=== PATIENT | male | born 1945 | race Caucasian/White ===

== ENCOUNTER 2017-09-30 16:19 | Emergency (ER) | payer OTHER ==
[~2017-09-30] VITALS: Ht 162.6 cm; Wt 74.8 kg
[~2017-09-30 16:19] MED LIST: ASPIRIN81 M2 PO; BAYER CHEWABLE81 MG PO; BEE POLLEN580 MG PO; L-ARGININE500 M1 PO; LEVAQUIN 500 M500 M2 PO; LOPRESSOR25 PO; MIRALAX17 GM PO; NORCO 5-325 TA1 EACH PO; ONDANSETRON HCL4 M2 PO; PROBIOTIC1 EAC1 PO; VITAMIN D35000 UNI1 PO; [UNRECOGNIZED DRUG - OTHER] PO
[2017-09-30 17:09] LABS: HEMATOCRIT 44.2 % (42.0-52.0); HEMOGLOBIN 15.2 gm/dL (14.0-18.0); MCH 29.5 pg (26.0-34.0); MCHC 34.4 g/dL (28.0-37.0); MCV 85.8 fL (80.0-100.0); NUCLEATED RBCS 0 /100WBC; PLATELET COUNT* 228 thou/uL (150-400); RBC 5.15 mil/uL (4.50-6.00); WBC 4.7 thou/uL (4.0-11.0)
[2017-09-30 17:21] LABS: CALCIUM 8.9 mg/dL (8.5-10.1); CREATININE 1.2 mg/dL (0.6-1.3)
[2017-09-30 17:22] LABS: TROPONIN-I LEVEL <0.06 ng/mL (<0.06)
[2017-09-30 17:26] LABS: ALBUMIN 3.7 g/dL (3.4-5.0); TOTAL BILIRUBIN 0.3 mg/dL (<0.1-1.0); TOTAL PROTEIN 7.9 g/dL (6.4-8.2)
[2017-09-30 17:33] LABS: INFLUENZA A ANTIGEN None Detected (None Detect); INFLUENZA B ANTIGEN None Detected (None Detect)
[2017-09-30 17:55] LABS: ABSOLUTE MONOCYTES 1.2 thou/uL (0.0-1.2); ABSOLUTE NEUTROPHILS 2.4 thou/uL (1.6-8.1); PLATELET ESTIMATE ADEQUATE
[2017-09-30 18:27] LABS: URINE BLOOD TRACE (Negative); URINE CLARITY CLEAR; URINE COLOR YELLOW; URINE GLUCOSE-RANDOM 1+ (Negative); URINE KETONES TRACE (Negative); URINE LEUKOCYTES-REFLEX NEGATIVE (Negative); URINE NITRITE-REFLEX NEGATIVE (Negative); URINE PROTEIN TRACE (Negative); URINE SPECIFIC GRAVITY >= 1.030 (1.005-1.030); URINE UROBILINOGEN 0.2 E.U./dl (0.2-1.0)
[2017-09-30 18:34] LABS: ICTOTEST (BILI CONFIRMATORY) Negative (Negative); URINE BILIRUBIN 1+ (Negative)
[2017-09-30] MEDS ORDERED: FLAGYL500 MG PO (20:09)
[2017-09-30] MEDS ORDERED: CIPRO500 M1 PO (20:09)
[2017-09-30] MEDS ORDERED: ONDANSETRON HCL4 M2 PO (20:10)
[2017-09-30] MEDS ORDERED: PREDNISONE 20 M20 M1 PO (20:42)
[2017-09-30 21:17] VITALS: BP 110/66
--- NOTE | 2017-10-02 15:54 | EKG ---
[place] [address] ELECTROCARDIOGRAM REPORT Name: BIBI HUANG II Room: [facility]#: [id number] Admission: 09/30/17 Attend Phys: Discharge: 09/30/17 Date of : 45 Report #: [id number] THIS REPORT FOR: //name// [facility] ED Test Date: 2017-09-30 Test Time: 17:01:05 Pat Name: BIBI HUANG Department: Room: Gender: Talent Program Manager: Jeramie AVILA : 1945 Requested By: Jolly Acuña Order Number: [id number] MD: Joe Davidson Measurements Intervals [place] Rate: 96 P: 75 NE: 129 QRS: -79 QRSD: 80 T: 58 QT: 326 QTc: 412 Interpretive Statements Sinus tachycardia Atrial premature complex Left anterior fascicular block Compared to ECG 07/30/2017 04:27:50 Atrial premature complex(es) now present Electronically Signed On 10-02-2017 15:54:37 IND[employer]RI[employer] TRA[employer] SPECIALIST by Joe Davidson [email or web address] <ELECTRONICALLY SIGNED> By: Reinaldo Davidson MD, [facility] 10/02/17 1554 170 170 Reinaldo Davidson MD, [facility] /EPI
== END 2017-09-30 21:20 | disposition home or self-care (01) ==
LOC: M.ERS 16:19
PROVIDERS: Nurse Practitioner Family
DX: R10.32 Left lower quadrant pain (principal); R53.1 Weakness; Z86.61 Personal history of infections of the central nervous system; Z86.73 Personal history of transient ischemic attack (TIA), and cerebral infarction without residual deficits; Z88.2 Allergy status to sulfonamides; Z88.7 Allergy status to serum and vaccine; Z91.041 Radiographic dye allergy status

== ENCOUNTER → 2019-10-19 | Outpatient (CLI) | payer OTHER ==
[~2019-10-19] MED LIST changes: +CIPRO500 M1 PO; +FLAGYL500 MG PO; +PREDNISONE 20 M20 M1 PO
[2019-10-19 11:10] LABS: HEMATOCRIT 43.5 % (42.0-52.0); HEMOGLOBIN 14.9 gm/dL (14.0-18.0); MCH 29.4 pg (26.0-34.0); MCHC 34.1 g/dL (28.0-37.0); MCV 86.2 fL (80.0-100.0); MPV 6.8 fl. (7.2-11.1); RBC 5.05 mil/uL (4.50-6.00); RDW-CV 13.6 % (10.5-14.5); WBC 9.1 thou/uL (4.0-11.0)
[2019-10-19 11:20] LABS: ALBUMIN 3.6 g/dL (3.4-5.0); ALKALINE PHOSPHATASE 73 U/L (46-116); ANION GAP 5 mmol/L (7-16); BUN 15 mg/dL (7-18); CALCIUM 8.3 mg/dL (8.5-10.1); CHLORIDE 99 mmol/L (98-107); CHOLESTEROL 190 mg/dL (<200); CO2 31 mmol/L (21-32); CREATININE 1.1 mg/dL (0.6-1.3); GLUCOSE 175 mg/dL (70-99); HDL CHOLESTEROL 47 mg/dL (>40); LDL CHOLESTEROL 125 mg/dL (<100); PHOSPHORUS* 2.8 mg/dL (2.5-4.9); POTASSIUM 4.3 mmol/L (3.5-5.1); SGOT 19 U/L (15-37); SGPT 26 U/L (30-65); SODIUM 135 mmol/L (136-145); TOTAL BILIRUBIN 0.4 mg/dL (<0.1-1.0); TOTAL PROTEIN 8.3 g/dL (6.4-8.2); TRIGLYCERIDE 93 mg/dL (<150); VLDL 19 mg/dL (<40)
[2019-10-19 11:21] LABS: SERUM ASSESSMENT Clear
--- NOTE | 2019-10-20 12:37 | PF ---
[address] [address] PULMONARY FUNCTION REPORT Name: BIBI HUANG II Room: [facility]#: [id number] Admission: 10/19/19 Attend Phys: Physician not on staf Discharge: Date of : 45 Report #: [id number] THIS REPORT FOR: //name// CC: Nenita STARKEY Physician staff DATE OF SERVICE: 10/19/2019 PULMONARY FUNCTION TEST REPORT FEV1 to FVC ratio is 66% of predicted. FEV1 is 1.77 liters, 74% of predicted. FVC is 2.68 liters, 80% of predicted. Pulmonary diffusion capacity is 48% of predicted. In summary, spirometry suggests mild obstructive lung defect (GOLD grade 2). There is no significant post-bronchodilator change. Pulmonary diffusion capacity is severely reduced. <ELECTRONICALLY SIGNED> By: Soni Hanson MD 10/20/19 1237 1242 0003Soni Hanson MD /nt
== END ==
LOC: M.PUL 10-09 15:29 → M.LAB 10:20
DX: T56 Toxic effect of metals (principal); R06.00 Dyspnea, unspecified; Y92.89 Other specified places as the place of occurrence of the external cause

== ENCOUNTER 2020-12-13 14:00 | Emergency (ER) | payer OTHER ==
[~2020-12-13] VITALS: Ht 162.6 cm; Wt 73.9 kg
[2020-12-13] MEDS ORDERED: VENTOLIN HFA INH8 GM INH (14:19)
[2020-12-13] MEDS ORDERED: NORCO5 PO (15:40)
[2020-12-13 16:21] VITALS: BP 130/70
== END 2020-12-13 16:21 | disposition home or self-care (01) ==
LOC: M.ERS 14:00
DX: S82.492A Other fracture of shaft of left fibula, initial encounter for closed fracture (principal); S16.1XXA Strain of muscle, fascia and tendon at neck level, initial encounter; G47.30 Sleep apnea, unspecified; Z88.2 Allergy status to sulfonamides; Z91.041 Radiographic dye allergy status; Z88.7 Allergy status to serum and vaccine; Z86.73 Personal history of transient ischemic attack (TIA), and cerebral infarction without residual deficits; W18.39XA Other fall on same level, initial encounter; Y93.89 Activity, other specified; Y92.89 Other specified places as the place of occurrence of the external cause; Y99.8 Other external cause status

== ENCOUNTER → 2020-12-16 | Outpatient (CLI) | payer OTHER ==
[~2020-12-16] MED LIST changes: +NORCO5 PO; +VENTOLIN HFA INH8 GM INH
[2020-12-16 14:45] LABS: ABSOLUTE BASOPHILS 0.1 thou/uL (0.0-0.2); ABSOLUTE EOSINOPHILS 0.2 thou/uL (0.0-0.7); ABSOLUTE LYMPHOCYTES 1.1 thou/uL (0.8-5.3); ABSOLUTE MONOCYTES 1.5 thou/uL (0.0-1.2); ABSOLUTE NEUTROPHILS 8.9 thou/uL (1.6-8.1); BASOPHILS 0.9 %; EOSINOPHILS 1.6 %; HEMATOCRIT 40.8 % (42.0-52.0); HEMOGLOBIN 13.6 gm/dL (14.0-18.0); LYMPHOCYTES 9.2 %; MCH 29.3 pg (26.0-34.0); MCHC 33.3 g/dL (28.0-37.0); MONOCYTES 12.5 %; MPV 6.3 fl. (7.2-11.1); NUCLEATED RBCS 0 /100WBC; PLATELET COUNT* 397 thou/uL (150-400); POLYS 75.8 %; RBC 4.64 mil/uL (4.50-6.00); RDW-CV 13.3 % (10.5-14.5); WBC 11.7 thou/uL (4.0-11.0)
[2020-12-16 15:02] LABS: ALBUMIN 3.4 g/dL (3.4-5.0); CALCIUM 9.1 mg/dL (8.5-10.1); CREATININE 0.9 mg/dL (0.6-1.3); POTASSIUM 3.9 mmol/L (3.5-5.1); TOTAL BILIRUBIN 0.7 mg/dL (<0.1-1.0); TOTAL PROTEIN 8.4 g/dL (6.4-8.2)
--- NOTE | 2020-12-16 15:02 | EKG ---
[place] [address] ELECTROCARDIOGRAM REPORT Name: BIBI HUANG II Room: [facility]#: [id number] Admission: 12/16/20 Attend Phys: Ebenezer Nair, Discharge: Date of : 45 Date of Service: 12/16/20 1409 Report #: [id number] THIS REPORT FOR: //name// [facility] Test Date: 2020-12-16 Test Time: 14:09:14 Pat Name: BIBI HUANG Department: Room: Gender: Journeyman Pressman: : 1945 Requested By: Ebenezer Nair Order Number: [id number] Reading MD: Armen Van Measurements Intervals [place] Rate: 97 P: 73 AL: 136 QRS: -75 QRSD: 83 T: 64 QT: 331 QTc: 421 Interpretive Statements Sinus rhythm LAD, consider left anterior fascicular block Compared to ECG 09/30/2017 17:01:05 Sinus tachycardia no longer present Atrial premature complex(es) no longer present Electronically Signed On 12-16-2020 15:02:36 CDT by Armen Van [email or web address] <ELECTRONICALLY SIGNED> By: Armen Van MD, FAC 12/16/20 1502 1409 1409 Armen Van MD, [facility] /EPI
[2020-12-16 15:32] LABS: PROTIME 10.4 Seconds (9.20-11.50)
== END ==
LOC: M.LAB 13:38
PROVIDERS: ATTEND Orthopaedic Surgery Foot and Ankle Surgery
DX: M25.572 Pain in left ankle and joints of left foot (principal); I49.9 Cardiac arrhythmia, unspecified